=== PATIENT | male | born 1995 | race African-American/Black ===

== ENCOUNTER 2017-08-02 07:43 | Emergency (ER) | payer OTHER ==
[2017-08-02] MEDS ORDERED: ACETAMINOPHEN TAB 500 MG TAB PO STA (08:07)
[2017-08-02] MEDS ORDERED: IBUPROFEN 600 MG STARTER PACK 4 TAB BTL PO STA (08:07)
--- NOTE | 2017-08-02 08:40 | ED ---
URI HPI - General Chief Complaint: Upper Respiratory Infection Stated Complaint: Fever Time Seen by Provider: 08/02/17 08:06 Source: patient, RN notes reviewed, old records reviewed Mode of arrival: ambulatory Limitations: no limitations - History of Present Illness Initial Comments: this patient is a 21-year-old male presents emergency department today chief complaint of cough, body aches, sore throat and congestion for the past 4 days. Patient ports that symptoms started on Tuesday. He arrives with a fever 101.8. Patient did not take any Motrin or Tylenol. He did have an episode of vomiting today. He reports that his cough has had some green productive sputum. He denies any significant medical history.Patient denies any recent shortness of breath, chest pain, back pain, abdominal pain, nausea vomiting, numbness or tingling, dysuria or hematuria, constipation or diarrhea, headaches or visual changes, or any other current symptoms - Related Data Home Medications Medication Instructions Recorded Confirmed Aspirin 325 mg PO ONCE PRN 08/02/17 08/02/17 Previous Rx's Medication Instructions Recorded Acetaminophen Tab [Tylenol Tab] 650 mg PO Q4H #30 tablet 08/02/17 Ondansetron Odt [Zofran Odt] 4 mg PO Q8HR PRN #10 tab 08/02/17 Promethazine/Dextromethorphan 5 ml PO TID #120 ml 08/02/17 [Phenergan DM Syrup] Allergies Allergy/AdvReac Type Severity Reaction Status Date / Time aspirin AdvReac Nausea & Verified 08/02/17 08:23 Vomiting Review of Systems ROS Statement: Those systems with pertinent positive or pertinent negative responses have been documented in the HPI. ROS Other: All systems not noted in ROS Statement are negative. Past Medical History Past Medical History: No Reported History History of Any Multi-Drug Resistant Organisms: None Reported Past Surgical History: No Surgical Hx Reported Past Psychological History: No Psychological Hx Reported Smoking Status: Current every day smoker Past Alcohol Use History: Occasional Past Drug Use History: Marijuana General Exam - General Exam Comments Initial Comments: this patient is a 21-year-old male. No acute distress. Limitations: no limitations General appearance: alert, in no apparent distress Head exam: Present: atraumatic Eye exam: Present: normal appearance, PERRL, EOMI. Absent: scleral icterus, conjunctival injection, periorbital swelling ENT exam: Present: normal exam, mucous membranes moist. Absent: normal oropharynx (pharyngeal erythema.) Neck exam: Present: normal inspection, full ROM, lymphadenopathy (the lateral tonsillar lymphadenopathy.). Absent: tenderness, meningismus Respiratory exam: Present: normal lung sounds bilaterally. Absent: respiratory distress, wheezes, rales, rhonchi, stridor Cardiovascular Exam: Present: regular rate, normal rhythm, normal heart sounds. Absent: systolic murmur, diastolic murmur, rubs, gallop, clicks GI/Abdominal exam: Present: soft, normal bowel sounds. Absent: distended, tenderness, guarding, rebound, rigid Extremities exam: Present: normal inspection, full ROM, normal capillary refill. Absent: tenderness, pedal edema, joint swelling, calf tenderness Back exam: Present: normal inspection Neurological exam: Present: alert, oriented X3, CN II-XII intact Psychiatric exam: Present: normal affect, normal mood Skin exam: Present: warm, dry, intact, normal color. Absent: rash Course Vital Signs 08/02/17 07:48 Temperature 101.8 F H Pulse Rate 105 H Respiratory 20 Rate Blood Pressure 135/77 O2 Sat by Pulse 96 Oximetry Medical Decision Making - Medical Decision Making 21-year-old male with history of upper a story congestion, productive cough present with fever 101.8. Patient was given Motrin Tylenol. Chest x-ray and fluids and strep test completed. Patient lungs are clear to auscultation. He does have some mild pharyngeal erythema. Chest x-rays negative for any acute process. patient's influenza test is positive for both a. Rapid strep is negative. Patient informed the results. He is out of the window for benefit of Tamiflu. Discussed treating the patient symptomatically, Motrin Tylenol cough syrup. Discussed return to emergency department if any alarming signs or symptoms occur. Patient be given a note for work. - Lab Data Lab Results 08/02/17 08/02/17 Range/Units 08:14 08:14 Influenza Type A RNA Detected H (Not Detectd) Influenza Type B (PCR) Not Detected (Not Detectd) Group A Strep Rapid Negative (Negative) - Radiology Data Radiology results: report reviewed chest x-rays negative for any acute process. Disposition Clinical Impression: Influenza A Disposition: HOME SELF-CARE Condition: Good Instructions: Influenza (ED) Additional Instructions: patient needs to have Tylenol or Motrin every 4 hours. Patient should use the cough syrup as directed. Use nausea pills as well. Rest, remain hydrated. Return to the emergency department if any alarming signs or symptoms occur. Prescriptions: Acetaminophen Tab [Tylenol Tab] 650 mg PO Q4H #30 tablet Ondansetron Odt [Zofran Odt] 4 mg PO Q8HR PRN #10 tab PRN Reason: Nausea Promethazine/Dextromethorphan [Phenergan DM Syrup] 5 ml PO TID #120 ml Referrals: Srinath Ayala MD [Primary Care Provider] - 1-2 days Time of Disposition: 08:54
--- NOTE | 2017-08-02 08:42 | XR ---
EXAMINATION TYPE: XR chest 2V DATE OF EXAM: 08/02/2017 COMPARISON: 09/18/2011 INDICATION: Pain sore throat lower back pain TECHNIQUE: Frontal and lateral views of the chest are obtained. FINDINGS: The heart size is normal. The pulmonary vasculature is normal. The lungs are clear. IMPRESSION: 1. No acute pulmonary process.
[2017-08-02] MEDS ORDERED: ONDANSETRON 4 MG ODT STARTER PACK 2 TAB BTL PO STA (08:55)
[2017-08-02 09:09] VITALS: BP 141/65; PULSE 90; RESP 18; TEMP 101.5
== END 2017-08-02 09:09 | disposition home or self-care (01) ==
LOC: EC 07:43
DX: J10.1 Influenza due to other identified influenza virus with other respiratory manifestations (principal); F17.200 Nicotine dependence, unspecified, uncomplicated; Z88.6 Allergy status to analgesic agent
CPT/HCPCS: 87081; 87430; 87502; 71046; 99284; S0119

== ENCOUNTER 2018-04-20 19:05 | Emergency (ER) | payer OTHER ==
[2018-04-20 19:11] VITALS: BP 123/74; PULSE 91; RESP 18; TEMP 98.2
[2018-04-20] MEDS ORDERED: DIPH,PERTUS(ACELL)TETVAC-LF 0.5 ML VIAL IM ONE (19:41)
[2018-04-20] MEDS ORDERED: AMOXIC-POT CLAV 875-125MG 1 EACH TAB PO STA (19:41)
--- NOTE | 2018-04-20 19:49 | ED ---
Animal Bite HPI - General Chief Complaint: Animal Bite Stated Complaint: dog bite lt hip Time Seen by Provider: 04/20/18 19:14 Source: patient Mode of arrival: ambulatory Limitations: no limitations - History of Present Illness Initial Comments: 22yo male who denies past medical history presents today for chief complaint of dog bite to left thigh. Patient states that he was walking to [place] on [address] around 6 PM when a black dog came ran off an older couples porch and jumped up bitting his left upper thigh. Patient states the dog bit once and ran back to the porch. Pt states he didnt think to ask about vaccinations. Pt didnt initially disclose that the dog was not stray because he stated he didnt want to get the dog taken away from the owners. Pt denies last known tetanus shot. Pt denies medication allergies. Remainder of ROS (-). - Related Data Previous Rx's Medication Instructions Recorded Amoxic-Pot Clav 875-125Mg 1 tab PO Q12HR 5 Days #10 tablet 04/20/18 [Augmentin 875-125] Allergies Allergy/AdvReac Type Severity Reaction Status Date / Time aspirin AdvReac Nausea & Verified 04/20/18 19:11 Vomiting Review of Systems ROS Statement: Those systems with pertinent positive or pertinent negative responses have been documented in the HPI. ROS Other: All systems not noted in ROS Statement are negative. Constitutional: Denies: fever, chills Eyes: Denies: vision change ENT: Denies: ear pain, throat pain Respiratory: Denies: cough, dyspnea Cardiovascular: Denies: chest pain, palpitations Endocrine: Denies: fatigue Gastrointestinal: Denies: abdominal pain, nausea, vomiting, diarrhea, constipation Genitourinary: Denies: urgency, dysuria Musculoskeletal: Denies: back pain Skin: Reports: as per HPI (small 1/2 superficial skin avulsion-no puncture of the left anterior thigh) Neurological: Denies: headache, weakness, numbness, paresthesias, confusion Past Medical History Past Medical History: No Reported History History of Any Multi-Drug Resistant Organisms: None Reported Past Surgical History: No Surgical Hx Reported Past Psychological History: No Psychological Hx Reported Smoking Status: Current every day smoker Past Alcohol Use History: Occasional Past Drug Use History: Marijuana General Exam - General Exam Comments Initial Comments: General: The patient is awake and alert, in no distress, and does not appear acutely ill. Eye: Pupils are equal, round and reactive to light, extra-ocular movements are intact. No nystagmus. There is normal conjunctiva bilaterally. No signs of icterus. Ears, nose, mouth and throat: There are moist mucous membranes and no oral lesions. Cardiovascular: There is a regular rate and rhythm. No murmur, rub or gallop is appreciated. Respiratory: Lungs are clear to auscultation, respirations are non-labored, breath sounds are equal. No wheezes, stridor, rales, or rhonchi. Musculoskeletal: Normal ROM, no tenderness. Strength 5/5. Sensation intact. Pulses equal bilaterally 2+. Neurological: A&O x 3. CN II-XII intact, There are no obvious motor or sensory deficits. Coordination appears grossly intact. Speech is normal. Skin: Skin is warm and dry and no rashes or lesions are noted. Small superficial skin avulsion <1/2cm circular no evidence of puncture. No surrounding erythema/edema. No active bleeding. Psychiatric: Cooperative, appropriate mood & affect, normal judgment. Limitations: no limitations Course Vital Signs 04/20/18 19:09 Temperature 98.2 F Pulse Rate 91 Respiratory 18 Rate Blood Pressure 123/74 O2 Sat by Pulse 99 Oximetry Medical Decision Making - Medical Decision Making PE revealed a superficial skin avulsion of left anterior thigh. Pt TDaP update and pt given dose of augmentin for infection ppx. Pt given RX of augmentin to continue ppx from dog bite. Wound is very superficial it was cleansed with idodine and sterile water. covered with sterile bandage. Rabies ppx discussed in detail pt stated he did not think the dog had rabies and he would go speak to the dog owners, pt refused at this time stating he did not want it. Pt understood that rabies leads to , verbalized understanding. Pt stated he would return if family stated that dog did not have its rabies vaccination. Pt to f/u with primary care for wound check in 2 days. pt agreed with plan d/c instable condition. Case discussed with Dr. Nuñez prior to d/c. Disposition Clinical Impression: Bite by animal, Dog bite Disposition: HOME SELF-CARE Condition: Good Instructions: Animal Bite (ED) Prescriptions: Amoxic-Pot Clav 875-125Mg [Augmentin 875-125] 1 tab PO Q12HR 5 Days #10 tablet Is patient prescribed a controlled substance at d/c from ED?: No Referrals: Srinath Ayala MD [Primary Care Provider] - 1-2 days Time of Disposition: 20:10
== END 2018-04-20 20:20 | disposition home or self-care (01) ==
LOC: EC 19:05
DX: S71.152A Open bite, left thigh, initial encounter (principal); F17.200 Nicotine dependence, unspecified, uncomplicated; Z88.6 Allergy status to analgesic agent; Z23 Encounter for immunization; Z53.29 Procedure and treatment not carried out because of patient's decision for other reasons; W54.0XXA Bitten by dog, initial encounter; Y93.01 Activity, walking, marching and hiking; Y92.410 Unspecified street and highway as the place of occurrence of the external cause
CPT/HCPCS: 90471; 90715; 99283